=== PATIENT | female | born 1945 | race Caucasian/White ===

== ENCOUNTER → 2017-06-11 | Outpatient (CLI) | payer MEDICARE, OTHER ==
[~2017-06-11] MED LIST: ACET325T9 PO; CALC1TAB75 PO; CLOB15CR TP; FENO54TA PO; IBUP100T8 PO; OMEP20CA9 PO; RALO60TA PO
--- NOTE | 2017-06-11 14:46 | RAD ---
Indication: Multinodular goiter. Patient is for ultrasound-guided biopsy of the thyroid. The patient was brought to the ultrasound suite and placed on the table in the supine position. Ultrasound imaging over the neck was performed to evaluate appropriate entry site. The skin was marked. The neck was prepped and draped in the usual sterile fashion. A small amount of 1% lidocaine was utilized for local anesthesia. A total of 3 passes were made into the dominant solid mass within the isthmus with 25-gauge needles. A single pass with a rotex needle was performed. Next, a total of 3 passes were made into the dominant solid mass within the right lobe of the thyroid with 25-gauge needles. A single pass with a rotex needle was performed. Hemostasis was obtained using manual compression. The patient tolerated the procedure well and left the department in stable condition. Pathology results are currently pending. Impression: Successful ultrasound-guided fine-needle aspirations involving the dominant solid mass within the right lobe of the thyroid as well as the dominant solid lesion within the isthmus. Pathology results are currently pending.
== END | disposition home or self-care (01) ==
LOC: US 14:12
PROVIDERS: ATTEND Nurse Practitioner Family
DX: E04.2 Nontoxic multinodular goiter (principal)
CPT/HCPCS: 60300; 76942